=== PATIENT | male | born 1960 | race Caucasian/White ===

== ENCOUNTER 2017-08-26 06:23 | Day surgery (SDC) | payer OTHER ==
[~2017-08-26] VITALS: Ht 185.4 cm; Wt 79.4 kg
[~2017-08-26 06:23] MED LIST: AUGMENTIN875TAB PO; BACTRIM DS1 TAB PO; DEPO-MEDROL80 MG/ML IM; FLONASE NASAL50 MCG; HYDROXYZ HCL25 MG PO; MAGNESIUM250 M1 PO; MULTI VIT PO; PRILOSEC20 MG PO; PROBIOTIC1 TAB PO; TRIAMCINOLON0.11 EX; ZOFRAN ODT4 MG PO
[2017-08-26 09:03] VITALS: BP 112/63
== END 2017-08-26 09:02 | disposition home or self-care (01) | DRG 951 ==
LOC: ENDO 06:23 → ORM 08:45 → ENDO 09:02
PROVIDERS: ATTEND Internal Medicine Gastroenterology
PROC: 0DJD8ZZ Inspection of Lower Intestinal Tract, Via Natural or Artificial Opening Endoscopic (ICD-10-PCS; principal; 2017-08-26)
DX: Z12.11 Encounter for screening for malignant neoplasm of colon (principal); K64.8 Other hemorrhoids; K57.30 Diverticulosis of large intestine without perforation or abscess without bleeding; K64.4 Residual hemorrhoidal skin tags; K21.9 Gastro-esophageal reflux disease without esophagitis; K40.90 Unilateral inguinal hernia, without obstruction or gangrene, not specified as recurrent

== ENCOUNTER 2019-03-07 17:42 | Emergency (ER) | payer OTHER ==
[~2019-03-07] VITALS: Ht 185.4 cm; Wt 79.5 kg
[2019-03-07] MEDS ORDERED: CEPHALEXIN500 MG PO (18:16)
[2019-03-07 18:43] VITALS: BP 143/79
== END 2019-03-07 18:50 | disposition home or self-care (01) | DRG 605 ==
LOC: ED 17:42
PROC: 0HQKXZZ Repair Right Lower Leg Skin, External Approach (ICD-10-PCS; principal; 2019-03-07)
DX: S81.811A Laceration without foreign body, right lower leg, initial encounter (principal); W22.8XXA Striking against or struck by other objects, initial encounter; Y93.89 Activity, other specified; Y92.89 Other specified places as the place of occurrence of the external cause; Y99.0 Civilian activity done for income or pay

== ENCOUNTER 2020-04-07 13:01 | Emergency (ER) | payer OTHER ==
[~2020-04-07 13:01] MED LIST changes: +CEPHALEXIN500 MG PO
[2020-04-07 15:00] VITALS: BP 150/63
== END 2020-04-07 15:13 | disposition home or self-care (01) | DRG 605 ==
LOC: ED 13:01
DX: S00.03XA Contusion of scalp, initial encounter (principal); W20.8XXA Other cause of strike by thrown, projected or falling object, initial encounter; Y93.H9 Activity, other involving exterior property and land maintenance, building and construction; Y92.007 Garden or yard of unspecified non-institutional (private) residence as the place of occurrence of the external cause